=== PATIENT | male | born 1955 | race African-American/Black ===

== ENCOUNTER 2022-12-18 15:17 | Inpatient (IN) ==
[2022-12-18] MEDS ORDERED: ONDANSETRON 4 MG/2 ML VIAL IV STA (15:45)
[2022-12-18] MEDS ORDERED: SODIUM CHLORIDE 0.9% 1,000 ML IV STA (15:45)
[2022-12-18] MEDS ORDERED: PANTOPRAZOLE 40 MG VIAL IV STA (15:45)
[2022-12-18] MEDS ORDERED: SODIUM CHLORIDE 0.9% 1,000 ML IV PRN (15:45)
[2022-12-18 16:37] LABS: Basophils % 0.1 % (0.0-0.8); Eosinophils # 0.1 10*3/uL (0.0-0.87); Eosinophils % 0.9 % (0.00-10.9); Immature Granulocytes % 0.5 %; Immature Granulocytes Absolute 0.04 #; Lymphocytes # 0.9 10*3/uL (1.4-4.0); Lymphocytes % 10.4 % (21.2-54.2); Mean Corpuscular HGB Conc 26.3 GM/DL (32-36); Mean Corpuscular Volume 81.3 FL (87-102); Mean Platelet Volume 11.8 FL (9.6-12.0); Monocytes # 0.7 10*3/uL (0.11-0.8); Monocytes % 8.7 % (1.7-12.7); Neutrophils % 79.4 % (38.7-73.9); Platelet Count 280 T/CUMM (130-400); Red Blood Count 1.92 MC/CUMM (3.8-5.5); Red Cell Distribution Width 19.6 % (9.3-17.3); White Blood Count 8.15 T/CUMM (4-12)
[2022-12-18 16:43] LABS: Hemoglobin 4.1 GM/DL (14.0-18.0)
[2022-12-18 16:44] LABS: Hematocrit 15.6 VOL% (42.0-52.0)
[2022-12-18 16:56] LABS: Alanine Aminotransferase 25 U/L (16-61); Albumin 2.9 G/DL (3.4-5.0); Alkaline Phosphatase 73 U/L (45-117); Aspartate Amino Transferase 42 U/L (0-37); Bilirubin,Total < 0.39 MG/DL (0.20-1.00); Blood Urea Nitrogen 18 MG/DL (7-18); Calcium 8.7 MG/DL (8.5-10.1); Carbon Dioxide 27 MMOL/L (21-32); Chloride 106 MMOL/L (98-107); Glucose 98 MG/DL (74-106); Osmolality,Calculated 284.1 MOS/KG (273-304); Potassium 4.7 MMOL/L (3.5-5.1); Sodium 142 MMOL/L (136-145); Total Protein 6.6 G/DL (6.4-8.2)
[2022-12-18] MEDS ORDERED: ONDANSETRON 4 MG/2 ML VIAL IV PRN (17:11)
[2022-12-18] MEDS ORDERED: ZALEPLON 5 MG CAPSULE PO PRN (17:11)
[2022-12-18] MEDS ORDERED: ACETAMINOPHEN 325 MG TABLET PO PRN (17:11)
[2022-12-18 17:17] LABS: Microcytosis 2+
[2022-12-18 17:18] LABS: Hypochromia 2+; Schistocytes Few
[2022-12-18 17:19] LABS: Elliptocytes Few; Platelet Estimate Adequate; Polychromasia Few
[2022-12-18] MEDS ORDERED: hydrALAZINE 20 MG/1 ML VIAL IV PRN (17:23)
[2022-12-18] MEDS ORDERED: FUROSEMIDE 40 MG/4 ML VIAL IV ONE ×2 (18:00)
[2022-12-18] MEDS: SODIUM CHLORIDE 0.9% 1,000 ML IV SCH (18:20)
[2022-12-18 21:16] LABS: Partial Thromboplastin Time 24.2 SECS (23.7-32.9)
[2022-12-18] MEDS: PANTOPRAZOLE INJ 200 MG in SODIUM CHLORIDE 0.9% 250 ML IV SCH (22:04)
[2022-12-19] MEDS ORDERED: FUROSEMIDE 40 MG/4 ML VIAL IV ONE ×2 (01:30→03:00)
[2022-12-19] MEDS: SODIUM CHLORIDE 0.9% 1,000 ML IV SCH ×3 (04:00→22:32)
[2022-12-19 06:23] LABS: Albumin 2.9 G/DL (3.4-5.0); Bilirubin,Total 0.5 MG/DL (0.20-1.00); Calcium 8.7 MG/DL (8.5-10.1); Osmolality,Calculated 281.3 MOS/KG (273-304); Potassium 3.8 MMOL/L (3.5-5.1); Risk Ratio 1.68; Thyroid Stimulating Hormone 1.98 uIU/ml (0.358-3.74); Total Protein 6.6 G/DL (6.4-8.2)
[2022-12-19 06:27] LABS: Basophils # 0.1 10*3/uL (0.0-0.2); Basophils % 0.7 % (0.0-0.8); Eosinophils # 0.1 10*3/uL (0.0-0.87); Eosinophils % 1.7 % (0.00-10.9); Hematocrit 22.8 VOL% (42.0-52.0); Hemoglobin 6.8 GM/DL (14.0-18.0); Immature Granulocytes % 0.3 %; Immature Granulocytes Absolute 0.02 #; Lymphocytes # 0.6 10*3/uL (1.4-4.0); Lymphocytes % 8.6 % (21.2-54.2); Mean Corpuscular HGB Conc 29.8 GM/DL (32-36); Mean Corpuscular Volume 84.1 FL (87-102); Mean Platelet Volume 12.4 FL (9.6-12.0); Monocytes # 0.8 10*3/uL (0.11-0.8); Monocytes % 10.8 % (1.7-12.7); Neutrophils % 77.9 % (38.7-73.9); Platelet Count 287 T/CUMM (130-400); Red Blood Count 2.71 MC/CUMM (3.8-5.5); Red Cell Distribution Width 17.2 % (9.3-17.3); White Blood Count 7.22 T/CUMM (4-12)
[2022-12-19] MEDS: ATORVASTATIN 10 MG TABLET PO SCH (09:35)
[2022-12-19] MEDS: FOLIC ACID 1 MG TABLET PO SCH (09:35)
[2022-12-19] MEDS ORDERED: SODIUM CHLORIDE 0.9% 1,000 ML IV PRN (11:02)
[2022-12-19 11:29] LABS: Hemoglobin 6.9 GM/DL (14.0-18.0)
[2022-12-19] MEDS: PANTOPRAZOLE INJ 200 MG in SODIUM CHLORIDE 0.9% 250 ML IV SCH (20:49)
[2022-12-19 20:53] LABS: Hematocrit 24.1 VOL% (42.0-52.0); Hemoglobin 7.5 GM/DL (14.0-18.0)
[2022-12-20 00:51] LABS: Hematocrit 24.3 VOL% (42.0-52.0); Hemoglobin 7.5 GM/DL (14.0-18.0)
[2022-12-20 05:11] LABS: Basophils % 0.5 % (0.0-0.8); Eosinophils # 0.1 10*3/uL (0.0-0.87); Eosinophils % 1.9 % (0.00-10.9); Hematocrit 25.5 VOL% (42.0-52.0); Hemoglobin 7.8 GM/DL (14.0-18.0); Immature Granulocytes % 0.5 %; Immature Granulocytes Absolute 0.04 #; Lymphocytes # 0.7 10*3/uL (1.4-4.0); Lymphocytes % 9.9 % (21.2-54.2); Mean Corpuscular HGB Conc 30.6 GM/DL (32-36); Mean Corpuscular Volume 80.7 FL (87-102); Mean Platelet Volume 11.7 FL (9.6-12.0); Monocytes # 0.7 10*3/uL (0.11-0.8); Monocytes % 9.1 % (1.7-12.7); Neutrophils % 78.1 % (38.7-73.9); Platelet Count 266 T/CUMM (130-400); Red Blood Count 3.16 MC/CUMM (3.8-5.5)
[2022-12-20 05:34] LABS: Albumin 2.7 G/DL (3.4-5.0); Bilirubin,Total 0.7 MG/DL (0.20-1.00); Calcium 8.6 MG/DL (8.5-10.1); Osmolality,Calculated 279.3 MOS/KG (273-304); Potassium 3.5 MMOL/L (3.5-5.1); Total Protein 6.2 G/DL (6.4-8.2)
[2022-12-20 05:43] LABS: Eosinophils 1 % (0-10); Lymphocytes 8 % (20-55); Nucleated Red Blood Cells 1 /100 WBC (0-5); Total Cells Counted 100
[2022-12-20 05:44] LABS: Hypochromia 1+; Microcytosis 1+; Platelet Estimate Normal; Polychromasia Slight; Target Cells Slight
[2022-12-20 06:08] LABS: Hematocrit 26.1 VOL% (42.0-52.0)
[2022-12-20] MEDS: LACTATED RINGERS 1,000 ML IV SCH (08:32)
[2022-12-20] MEDS ORDERED: propofoL 200 MG/20 ML VIAL IV ONE (09:28)
[2022-12-20] MEDS ORDERED: LIDOCAINE 2% 5 ML VIAL ONE (09:28)
[2022-12-20] MEDS: ATORVASTATIN 10 MG TABLET PO SCH (11:05)
[2022-12-20] MEDS: FOLIC ACID 1 MG TABLET PO SCH (11:05)
[2022-12-20 12:00] LABS: Hematocrit 26.1 VOL% (42.0-52.0)
[2022-12-20] MEDS: SODIUM CHLORIDE 0.9% 1,000 ML IV SCH ×2 (15:29→20:45)
[2022-12-20 18:14] LABS: Hematocrit 27.7 VOL% (42.0-52.0); Hemoglobin 8.5 GM/DL (14.0-18.0)
[2022-12-20] MEDS: PANTOPRAZOLE INJ 200 MG in SODIUM CHLORIDE 0.9% 250 ML IV SCH (20:45)
[2022-12-21] MEDS: SODIUM CHLORIDE 0.9% 1,000 ML IV SCH ×3 (02:15→17:43)
[2022-12-21 04:47] LABS: Basophils % 0.5 % (0.0-0.8); Eosinophils # 0.2 10*3/uL (0.0-0.87); Eosinophils % 1.9 % (0.00-10.9); Hematocrit 25.3 VOL% (42.0-52.0); Hemoglobin 7.8 GM/DL (14.0-18.0); Immature Granulocytes % 0.4 %; Immature Granulocytes Absolute 0.03 #; Lymphocytes # 0.7 10*3/uL (1.4-4.0); Lymphocytes % 8.6 % (21.2-54.2); Mean Corpuscular HGB Conc 30.8 GM/DL (32-36); Mean Corpuscular Volume 81.6 FL (87-102); Monocytes % 11.5 % (1.7-12.7); Neutrophils % 77.1 % (38.7-73.9); Platelet Count 253 T/CUMM (130-400); Red Cell Distribution Width 17.2 % (9.3-17.3); White Blood Count 8.23 T/CUMM (4-12)
[2022-12-21 05:28] LABS: Albumin 2.7 G/DL (3.4-5.0); Bilirubin,Total 0.6 MG/DL (0.20-1.00); Calcium 8.3 MG/DL (8.5-10.1); Osmolality,Calculated 278.3 MOS/KG (273-304); Potassium 3.5 MMOL/L (3.5-5.1); Total Protein 6.2 G/DL (6.4-8.2)
[2022-12-21] MEDS: FOLIC ACID 1 MG TABLET PO SCH (10:13)
[2022-12-21] MEDS: ATORVASTATIN 10 MG TABLET PO SCH (10:13)
[2022-12-21] MEDS: LACTATED RINGERS 1,000 ML IV SCH (10:14)
[2022-12-21 12:31] LABS: Hematocrit 25.1 VOL% (42.0-52.0); Hemoglobin 7.8 GM/DL (14.0-18.0)
[2022-12-21] MEDS: PANTOPRAZOLE INJ 200 MG in SODIUM CHLORIDE 0.9% 250 ML IV SCH ×2 (19:25→23:35)
[2022-12-21 21:36] LABS: Hematocrit 25.3 VOL% (42.0-52.0); Hemoglobin 7.7 GM/DL (14.0-18.0)
[2022-12-22] MEDS: SODIUM CHLORIDE 0.9% 1,000 ML IV SCH ×3 (03:18→21:30)
[2022-12-22 05:47] LABS: Basophils % 0.4 % (0.0-0.8); Eosinophils # 0.2 10*3/uL (0.0-0.87); Eosinophils % 2.5 % (0.00-10.9); Hematocrit 26.7 VOL% (42.0-52.0); Hemoglobin 8.2 GM/DL (14.0-18.0); Immature Granulocytes % 0.4 %; Immature Granulocytes Absolute 0.03 #; Lymphocytes # 0.8 10*3/uL (1.4-4.0); Lymphocytes % 10.7 % (21.2-54.2); Mean Corpuscular HGB Conc 30.7 GM/DL (32-36); Mean Corpuscular Volume 81.9 FL (87-102); Mean Platelet Volume 12.8 FL (9.6-12.0); Monocytes # 0.7 10*3/uL (0.11-0.8); Monocytes % 9.6 % (1.7-12.7); Neutrophils % 76.4 % (38.7-73.9); Platelet Count 264 T/CUMM (130-400); Red Blood Count 3.26 MC/CUMM (3.8-5.5); Red Cell Distribution Width 16.9 % (9.3-17.3); White Blood Count 7.32 T/CUMM (4-12)
[2022-12-22 05:50] LABS: Hematocrit 26.4 VOL% (42.0-52.0); Hemoglobin 8.2 GM/DL (14.0-18.0)
[2022-12-22 06:04] LABS: Calcium 8.8 MG/DL (8.5-10.1); Osmolality,Calculated 281.8 MOS/KG (273-304); Potassium 3.6 MMOL/L (3.5-5.1)
[2022-12-22] MEDS: LACTATED RINGERS 1,000 ML IV SCH (10:30)
[2022-12-22] MEDS: FOLIC ACID 1 MG TABLET PO SCH (10:31)
[2022-12-22] MEDS: ATORVASTATIN 10 MG TABLET PO SCH (10:31)
[2022-12-22 14:55] LABS: Hematocrit 28.7 VOL% (42.0-52.0); Hemoglobin 8.5 GM/DL (14.0-18.0)
[2022-12-22] MEDS: PANTOPRAZOLE INJ 200 MG in SODIUM CHLORIDE 0.9% 250 ML IV SCH (19:30)
[2022-12-22 20:05] LABS: Hematocrit 24.3 VOL% (42.0-52.0); Hemoglobin 7.5 GM/DL (14.0-18.0)
[2022-12-23] MEDS: SODIUM CHLORIDE 0.9% 1,000 ML IV SCH ×4 (00:44→21:21)
[2022-12-23 05:07] LABS: Basophils # 0.1 10*3/uL (0.0-0.2); Basophils % 0.6 % (0.0-0.8); Eosinophils # 0.2 10*3/uL (0.0-0.87); Eosinophils % 2.6 % (0.00-10.9); Hematocrit 25.3 VOL% (42.0-52.0); Hemoglobin 7.6 GM/DL (14.0-18.0); Immature Granulocytes % 0.4 %; Immature Granulocytes Absolute 0.03 #; Lymphocytes # 0.7 10*3/uL (1.4-4.0); Lymphocytes % 8.6 % (21.2-54.2); Mean Corpuscular Volume 81.4 FL (87-102); Mean Platelet Volume 12.4 FL (9.6-12.0); Monocytes # 0.8 10*3/uL (0.11-0.8); Monocytes % 9.8 % (1.7-12.7); Platelet Count 252 T/CUMM (130-400); Red Blood Count 3.11 MC/CUMM (3.8-5.5); Red Cell Distribution Width 17.3 % (9.3-17.3); White Blood Count 8.37 T/CUMM (4-12)
[2022-12-23 05:25] LABS: Calcium 8.5 MG/DL (8.5-10.1); Potassium 3.5 MMOL/L (3.5-5.1)
[2022-12-23 05:27] LABS: Eosinophils 4 % (0-10); Hypochromia 1+; Lymphocytes 8 % (20-55); Microcytosis 1+; Platelet Estimate Adequate; Total Cells Counted 100
[2022-12-23] MEDS ORDERED: LIDOCAINE 2% 5 ML VIAL ONE (08:59)
[2022-12-23] MEDS ORDERED: PHENYLEPHRINE 1 MG/10 ML SYRINGE IV ONE (08:59)
[2022-12-23] MEDS ORDERED: ONDANSETRON 4 MG/2 ML VIAL ONE (08:59)
[2022-12-23] MEDS ORDERED: propofoL 200 MG/20 ML VIAL IV ONE (08:59)
[2022-12-23] MEDS ORDERED: ROCURONIUM 50 MG/5 ML VIAL IV ONE (08:59)
[2022-12-23] MEDS ORDERED: SEVOFLURANE 1 UNIT/15 MINUTE INH ONE (08:59)
[2022-12-23] MEDS ORDERED: ETOMIDATE 40 MG/20 ML VIAL IV ONE (08:59)
[2022-12-23] MEDS ORDERED: MIDAZOLAM 2 MG/2 ML VIAL ONE (08:59)
[2022-12-23] MEDS ORDERED: fentaNYL 100 MCG/2 ML VIAL ONE ×3 (08:59→11:10)
[2022-12-23] MEDS ORDERED: ACETAMINOPHEN INJ 1,000 MG/100 ML VIAL IV ONE ×2 (09:00→10:26)
[2022-12-23] MEDS ORDERED: LIDOCAINE 1%/EPI INJ 20 ML VIAL ONE (09:08)
[2022-12-23] MEDS ORDERED: TISSUE ADHESIVE 1 EACH APPLICATOR TOP ONE (09:08)
[2022-12-23] MEDS ORDERED: BUPIVACAINE MPF 0.25% 10 ML VIAL ONE (09:08)
[2022-12-23 09:59] LABS: % Iron Saturation 4.2 % (18-50)
[2022-12-23 10:10] LABS: Folate > 24.00 NG/ML (5.38-24.0); Vitamin B12 602 PG/ML (211-911)
[2022-12-23] MEDS ORDERED: SUGAMMADEX 200 MG/2 ML VIAL IV ONE (10:57)
[2022-12-23] MEDS: FOLIC ACID 1 MG TABLET PO SCH (11:27)
[2022-12-23] MEDS: ATORVASTATIN 10 MG TABLET PO SCH (11:27)
[2022-12-23] MEDS ORDERED: KETOROLAC 15 MG/1 ML VIAL IV PRN (13:07)
[2022-12-23] MEDS ORDERED: HYDROmorphone 1 MG/1 ML SYRINGE IV PRN ×2 (13:07)
[2022-12-23] MEDS: PANTOPRAZOLE 40 MG VIAL IV SCH (20:23)
[2022-12-24 04:40] LABS: Basophils % 0.2 % (0.0-0.8); Eosinophils # 0.1 10*3/uL (0.0-0.87); Eosinophils % 0.8 % (0.00-10.9); Hematocrit 26.9 VOL% (42.0-52.0); Hemoglobin 8.1 GM/DL (14.0-18.0); Immature Granulocytes % 0.3 %; Immature Granulocytes Absolute 0.03 #; Lymphocytes # 0.5 10*3/uL (1.4-4.0); Lymphocytes % 5.7 % (21.2-54.2); Mean Corpuscular HGB Conc 30.1 GM/DL (32-36); Mean Corpuscular Volume 82.5 FL (87-102); Mean Platelet Volume 12.1 FL (9.6-12.0); Monocytes # 0.7 10*3/uL (0.11-0.8); Monocytes % 7.9 % (1.7-12.7); Neutrophils % 85.1 % (38.7-73.9); Platelet Count 241 T/CUMM (130-400); Red Blood Count 3.26 MC/CUMM (3.8-5.5); Red Cell Distribution Width 17.2 % (9.3-17.3); White Blood Count 8.59 T/CUMM (4-12)
[2022-12-24 05:02] LABS: Calcium 8.6 MG/DL (8.5-10.1); Osmolality,Calculated 278.3 MOS/KG (273-304); Potassium 3.4 MMOL/L (3.5-5.1)
[2022-12-24] MEDS: SODIUM CHLORIDE 0.9% 1,000 ML IV SCH ×2 (06:43→18:42)
[2022-12-24] MEDS: PANTOPRAZOLE 40 MG VIAL IV SCH ×2 (10:49→21:30)
[2022-12-24] MEDS: FERRIC GLUCONATE COMPLEX 125 MG in SODIUM CHLORIDE 0.9% 100 ML IV SCH (10:54)
[2022-12-24] MEDS: LOSARTAN 25 MG TABLET PO SCH (11:03)
[2022-12-24] MEDS: FOLIC ACID 1 MG TABLET PO SCH (11:04)
[2022-12-24] MEDS: ATORVASTATIN 10 MG TABLET PO SCH (11:05)
[2022-12-24] MEDS: amLODIPine 5 MG TABLET PO SCH (11:05)
[2022-12-24] MEDS: CHOLECALCIFEROL 5,000 UNIT TABLET PO SCH (11:06)
[2022-12-25 05:13] LABS: Basophils % 0.4 % (0.0-0.8); Eosinophils # 0.1 10*3/uL (0.0-0.87); Eosinophils % 1.1 % (0.00-10.9); Hematocrit 23.8 VOL% (42.0-52.0); Hemoglobin 7.1 GM/DL (14.0-18.0); Immature Granulocytes % 0.6 %; Immature Granulocytes Absolute 0.06 #; Lymphocytes # 0.6 10*3/uL (1.4-4.0); Lymphocytes % 5.6 % (21.2-54.2); Mean Corpuscular HGB Conc 29.8 GM/DL (32-36); Mean Corpuscular Volume 80.4 FL (87-102); Mean Platelet Volume 12.2 FL (9.6-12.0); Monocytes # 0.9 10*3/uL (0.11-0.8); Monocytes % 8.3 % (1.7-12.7); Platelet Count 206 T/CUMM (130-400); Red Blood Count 2.96 MC/CUMM (3.8-5.5); Red Cell Distribution Width 17.3 % (9.3-17.3); White Blood Count 10.31 T/CUMM (4-12)
[2022-12-25] MEDS: SODIUM CHLORIDE 0.9% 1,000 ML IV SCH (05:38)
[2022-12-25 05:51] LABS: Calcium 8.2 MG/DL (8.5-10.1); Osmolality,Calculated 282.1 MOS/KG (273-304); Potassium 3.2 MMOL/L (3.5-5.1)
[2022-12-25] MEDS ORDERED: ceFAZolin 1,000 MG VIAL IRRIG ONE (06:00)
[2022-12-25] MEDS ORDERED: POTASSIUM CHLORIDE 20 MEQ TABLET PO ONE (09:34)
[2022-12-25] MEDS ORDERED: SODIUM CHLORIDE 0.9% 1,000 ML IV PRN (10:38)
[2022-12-25] MEDS: CHOLECALCIFEROL 5,000 UNIT TABLET PO SCH (11:07)
[2022-12-25] MEDS: LOSARTAN 25 MG TABLET PO SCH (11:07)
[2022-12-25] MEDS: PANTOPRAZOLE 40 MG VIAL IV SCH ×2 (11:07→20:28)
[2022-12-25] MEDS: ATORVASTATIN 10 MG TABLET PO SCH (11:08)
[2022-12-25] MEDS: FOLIC ACID 1 MG TABLET PO SCH (11:08)
[2022-12-25] MEDS: amLODIPine 5 MG TABLET PO SCH (11:08)
[2022-12-25] MEDS: FERRIC GLUCONATE COMPLEX 125 MG in SODIUM CHLORIDE 0.9% 100 ML IV SCH (11:25)
[2022-12-26 02:00] LABS: Hemoglobin 8.8 GM/DL (14.0-18.0)
[2022-12-26 04:58] LABS: Basophils % 0.4 % (0.0-0.8); Eosinophils # 0.3 10*3/uL (0.0-0.87); Eosinophils % 3.1 % (0.00-10.9); Hematocrit 29.2 VOL% (42.0-52.0); Hemoglobin 9.1 GM/DL (14.0-18.0); Immature Granulocytes % 0.4 %; Immature Granulocytes Absolute 0.04 #; Lymphocytes # 0.7 10*3/uL (1.4-4.0); Lymphocytes % 6.6 % (21.2-54.2); Mean Corpuscular HGB Conc 31.2 GM/DL (32-36); Mean Corpuscular Volume 80.4 FL (87-102); Monocytes # 0.8 10*3/uL (0.11-0.8); Monocytes % 8.2 % (1.7-12.7); Neutrophils % 81.3 % (38.7-73.9); Platelet Count 196 T/CUMM (130-400); Red Blood Count 3.63 MC/CUMM (3.8-5.5); Red Cell Distribution Width 16.7 % (9.3-17.3)
[2022-12-26 05:14] LABS: Calcium 8.3 MG/DL (8.5-10.1); Osmolality,Calculated 281.1 MOS/KG (273-304); Potassium 3.2 MMOL/L (3.5-5.1)
[2022-12-26] MEDS ORDERED: ceFAZolin 1,000 MG VIAL ONE (06:52)
[2022-12-26] MEDS ORDERED: LIDOCAINE 1%/EPI INJ 20 ML VIAL ONE (06:52)
[2022-12-26] MEDS ORDERED: HEPARIN/NACL 0.9% 2 UNITS/ML 1,000 UNIT/500 ML BAG IV ONE (06:52)
[2022-12-26] MEDS ORDERED: POTASSIUM CHLORIDE 20 MEQ TABLET PO ONE (08:09)
[2022-12-26] MEDS ORDERED: MIDAZOLAM 2 MG/2 ML VIAL ONE ×2 (08:36→08:59)
[2022-12-26] MEDS ORDERED: fentaNYL 100 MCG/2 ML VIAL ONE (08:36)
[2022-12-26] MEDS: LOSARTAN 25 MG TABLET PO SCH (08:51)
[2022-12-26] MEDS: FERRIC GLUCONATE COMPLEX 125 MG in SODIUM CHLORIDE 0.9% 100 ML IV SCH (08:51)
[2022-12-26] MEDS: CHOLECALCIFEROL 5,000 UNIT TABLET PO SCH (08:52)
[2022-12-26] MEDS: ATORVASTATIN 10 MG TABLET PO SCH (08:52)
[2022-12-26] MEDS: PANTOPRAZOLE 40 MG VIAL IV SCH ×2 (08:52→21:28)
[2022-12-26] MEDS: amLODIPine 5 MG TABLET PO SCH (08:52)
[2022-12-26] MEDS: FOLIC ACID 1 MG TABLET PO SCH (08:53)
[2022-12-26] MEDS ORDERED: ceFAZolin 1,000 MG VIAL IRRIG ONE (10:44)
[2022-12-27 05:26] LABS: Basophils % 0.3 % (0.0-0.8); Eosinophils # 0.2 10*3/uL (0.0-0.87); Eosinophils % 2.3 % (0.00-10.9); Hematocrit 27.3 VOL% (42.0-52.0); Hemoglobin 8.8 GM/DL (14.0-18.0); Immature Granulocytes % 0.3 %; Immature Granulocytes Absolute 0.03 #; Lymphocytes # 0.6 10*3/uL (1.4-4.0); Lymphocytes % 6.5 % (21.2-54.2); Mean Corpuscular HGB Conc 32.2 GM/DL (32-36); Mean Corpuscular Volume 80.8 FL (87-102); Mean Platelet Volume 11.9 FL (9.6-12.0); Monocytes # 0.7 10*3/uL (0.11-0.8); Monocytes % 7.9 % (1.7-12.7); Neutrophils % 82.7 % (38.7-73.9); Platelet Count 191 T/CUMM (130-400); Red Blood Count 3.38 MC/CUMM (3.8-5.5); Red Cell Distribution Width 16.9 % (9.3-17.3); White Blood Count 8.75 T/CUMM (4-12)
[2022-12-27 05:51] LABS: Calcium 8.4 MG/DL (8.5-10.1); Osmolality,Calculated 279.3 MOS/KG (273-304); Potassium 3.4 MMOL/L (3.5-5.1)
[2022-12-27] MEDS ORDERED: POTASSIUM CHLORIDE INJ 10 MEQ in SODIUM CHLORIDE 0.9% 100 ML IV ONE (08:23)
[2022-12-27] MEDS ORDERED: POTASSIUM CHLORIDE RIDER 10 MEQ/100 ML PREMIX IV ONE (09:00)
[2022-12-27] MEDS ORDERED: PANTOPRAZOLE 40 MG VIAL IV SCH (09:00)
[2022-12-27] MEDS: FERRIC GLUCONATE COMPLEX 125 MG in SODIUM CHLORIDE 0.9% 100 ML IV SCH (09:10)
[2022-12-27 09:16] LABS: Hematocrit 23.8 VOL% (42.0-52.0); Hemoglobin 7.3 GM/DL (14.0-18.0)
[2022-12-27] MEDS ORDERED: SODIUM CHLORIDE 0.9% 1,000 ML IV PRN ×2 (09:28→09:30)
[2022-12-27] MEDS ORDERED: SUCCINYLCHOLINE 200 MG/10 ML VIAL ONE (11:42)
[2022-12-27] MEDS ORDERED: ONDANSETRON 4 MG/2 ML VIAL ONE (11:42)
[2022-12-27] MEDS ORDERED: propofoL 200 MG/20 ML VIAL IV ONE (11:42)
[2022-12-27] MEDS ORDERED: LIDOCAINE 2% 5 ML VIAL ONE (11:42)
[2022-12-27] MEDS ORDERED: ETOMIDATE 20 MG/10 ML VIAL IV ONE (11:42)
[2022-12-27] MEDS ORDERED: SEVOFLURANE 1 UNIT/15 MINUTE INH ONE (11:58)
[2022-12-27] MEDS: LACTATED RINGERS 1,000 ML IV SCH (12:44)
[2022-12-27] MEDS: CHOLECALCIFEROL 5,000 UNIT TABLET PO SCH (13:15)
[2022-12-27] MEDS: amLODIPine 5 MG TABLET PO SCH (13:16)
[2022-12-27] MEDS: LOSARTAN 25 MG TABLET PO SCH (13:16)
[2022-12-27] MEDS: ATORVASTATIN 10 MG TABLET PO SCH (13:16)
[2022-12-27] MEDS: FOLIC ACID 1 MG TABLET PO SCH (13:16)
[2022-12-27] MEDS: PANTOPRAZOLE 40 MG VIAL IV SCH ×2 (14:10→21:07)
[2022-12-28] MEDS ORDERED: ALUMINUM/MAGNES/SIMETH MAX STR 30 ML UDCUP PO PRN (03:12)
[2022-12-28 05:20] LABS: Basophils % 0.2 % (0.0-0.8); Eosinophils # 0.1 10*3/uL (0.0-0.87); Eosinophils % 0.7 % (0.00-10.9); Hematocrit 27.6 VOL% (42.0-52.0); Hemoglobin 8.7 GM/DL (14.0-18.0); Immature Granulocytes % 0.6 %; Immature Granulocytes Absolute 0.06 #; Lymphocytes # 0.5 10*3/uL (1.4-4.0); Lymphocytes % 4.7 % (21.2-54.2); Mean Corpuscular HGB Conc 31.5 GM/DL (32-36); Mean Corpuscular Volume 84.7 FL (87-102); Mean Platelet Volume 12.4 FL (9.6-12.0); Monocytes % 9.6 % (1.7-12.7); Neutrophils % 84.2 % (38.7-73.9); Platelet Count 169 T/CUMM (130-400); Red Blood Count 3.26 MC/CUMM (3.8-5.5); Red Cell Distribution Width 16.9 % (9.3-17.3); White Blood Count 10.45 T/CUMM (4-12)
[2022-12-28 05:37] LABS: Calcium 8.1 MG/DL (8.5-10.1); Osmolality,Calculated 280.5 MOS/KG (273-304); Potassium 3.6 MMOL/L (3.5-5.1)
[2022-12-28] MEDS: PANTOPRAZOLE 40 MG VIAL IV SCH ×2 (10:45→21:50)
[2022-12-28] MEDS: FOLIC ACID 1 MG TABLET PO SCH (10:45)
[2022-12-28] MEDS: CHOLECALCIFEROL 5,000 UNIT TABLET PO SCH (11:18)
[2022-12-28] MEDS: FERRIC GLUCONATE COMPLEX 125 MG in SODIUM CHLORIDE 0.9% 100 ML IV SCH (11:18)
[2022-12-28] MEDS: ATORVASTATIN 10 MG TABLET PO SCH (11:18)
[2022-12-28] MEDS: LACTATED RINGERS 1,000 ML IV SCH (12:03)
[2022-12-29] MEDS: PANTOPRAZOLE 40 MG VIAL IV SCH ×2 (11:07→21:48)
[2022-12-29] MEDS: FERRIC GLUCONATE COMPLEX 125 MG in SODIUM CHLORIDE 0.9% 100 ML IV SCH (11:07)
[2022-12-29] MEDS: FOLIC ACID 1 MG TABLET PO SCH (11:07)
[2022-12-29] MEDS: ATORVASTATIN 10 MG TABLET PO SCH (11:07)
[2022-12-29] MEDS: CHOLECALCIFEROL 5,000 UNIT TABLET PO SCH (11:08)
[2022-12-30 06:17] LABS: Basophils % 0.1 % (0.0-0.8); Eosinophils % 0.1 % (0.00-10.9); Hematocrit 27.3 VOL% (42.0-52.0); Hemoglobin 8.7 GM/DL (14.0-18.0); Lymphocytes # 0.7 10*3/uL (1.4-4.0); Lymphocytes % 3.2 % (21.2-54.2); Mean Corpuscular HGB Conc 31.9 GM/DL (32-36); Mean Corpuscular Volume 83.5 FL (87-102); Monocytes # 1.8 10*3/uL (0.11-0.8); Monocytes % 8.9 % (1.7-12.7); Neutrophils % 86.7 % (38.7-73.9); Platelet Count 205 T/CUMM (130-400); Red Blood Count 3.27 MC/CUMM (3.8-5.5); Red Cell Distribution Width 18.2 % (9.3-17.3); White Blood Count 20.01 T/CUMM (4-12)
[2022-12-30 06:33] LABS: Calcium 8.4 MG/DL (8.5-10.1); Osmolality,Calculated 260.7 MOS/KG (273-304); Potassium 3.3 MMOL/L (3.5-5.1)
[2022-12-30 06:43] LABS: Hypochromia Slight; Lymphocytes 4 % (20-55); Microcytosis Slight; Platelet Estimate Adequate; Total Cells Counted 100
[2022-12-30] MEDS: PANTOPRAZOLE 40 MG VIAL IV SCH ×2 (10:37→20:23)
[2022-12-30] MEDS: FERRIC GLUCONATE COMPLEX 125 MG in SODIUM CHLORIDE 0.9% 100 ML IV SCH (10:37)
[2022-12-30] MEDS: FOLIC ACID 1 MG TABLET PO SCH (10:49)
[2022-12-30] MEDS: CHOLECALCIFEROL 5,000 UNIT TABLET PO SCH (10:49)
[2022-12-30] MEDS: ATORVASTATIN 10 MG TABLET PO SCH (10:49)
[2022-12-30] MEDS ORDERED: POTASSIUM CHLORIDE 20 MEQ TABLET PO ONE (11:30)
[2022-12-31 05:42] LABS: Basophils % 0.2 % (0.0-0.8); Eosinophils # 0.1 10*3/uL (0.0-0.87); Eosinophils % 0.4 % (0.00-10.9); Hematocrit 23.3 VOL% (42.0-52.0); Hemoglobin 7.6 GM/DL (14.0-18.0); Immature Granulocytes % 0.8 %; Immature Granulocytes Absolute 0.12 #; Lymphocytes # 0.6 10*3/uL (1.4-4.0); Lymphocytes % 3.9 % (21.2-54.2); Mean Corpuscular HGB Conc 32.6 GM/DL (32-36); Monocytes # 1.1 10*3/uL (0.11-0.8); Neutrophils % 86.7 % (38.7-73.9); Platelet Count 243 T/CUMM (130-400); Red Blood Count 2.84 MC/CUMM (3.8-5.5); White Blood Count 14.33 T/CUMM (4-12)
[2022-12-31 06:07] LABS: Calcium 8.5 MG/DL (8.5-10.1); Osmolality,Calculated 261.7 MOS/KG (273-304); Potassium 3.3 MMOL/L (3.5-5.1)
[2022-12-31 06:09] LABS: Acanthocytes Few; Anisocytosis 1+; Eosinophils 1 % (0-10); Hypochromia 1+; Lymphocytes 2 % (20-55); Microcytosis 1+; Total Cells Counted 100
[2022-12-31 06:10] LABS: Platelet Estimate Normal; Target Cells Slight
[2022-12-31] MEDS: FOLIC ACID 1 MG TABLET PO SCH (08:41)
[2022-12-31] MEDS: CHOLECALCIFEROL 5,000 UNIT TABLET PO SCH (08:41)
[2022-12-31] MEDS: ATORVASTATIN 10 MG TABLET PO SCH (08:41)
[2022-12-31] MEDS ORDERED: POTASSIUM CHLORIDE 20 MEQ TABLET PO ONE (09:45)
[2022-12-31] MEDS: PANTOPRAZOLE 40 MG VIAL IV SCH ×2 (11:42→23:03)
[2023-01-01 04:35] LABS: Basophils % 0.3 % (0.0-0.8); Eosinophils # 0.1 10*3/uL (0.0-0.87); Hematocrit 24.3 VOL% (42.0-52.0); Hemoglobin 7.8 GM/DL (14.0-18.0); Immature Granulocytes Absolute 0.11 #; Lymphocytes # 0.6 10*3/uL (1.4-4.0); Lymphocytes % 5.5 % (21.2-54.2); Mean Corpuscular HGB Conc 32.1 GM/DL (32-36); Mean Corpuscular Volume 82.4 FL (87-102); Mean Platelet Volume 11.1 FL (9.6-12.0); Neutrophils % 83.2 % (38.7-73.9); Platelet Count 319 T/CUMM (130-400); Red Blood Count 2.95 MC/CUMM (3.8-5.5); Red Cell Distribution Width 18.2 % (9.3-17.3)
[2023-01-01 05:01] LABS: Calcium 8.3 MG/DL (8.5-10.1); Osmolality,Calculated 269.1 MOS/KG (273-304); Potassium 3.5 MMOL/L (3.5-5.1)
[2023-01-01] MEDS ORDERED: POTASSIUM CHLORIDE 20 MEQ TABLET PO ONE (08:31)
[2023-01-01] MEDS: PANTOPRAZOLE 40 MG VIAL IV SCH ×2 (09:57→21:36)
[2023-01-01] MEDS: FOLIC ACID 1 MG TABLET PO SCH (09:57)
[2023-01-01] MEDS: ATORVASTATIN 10 MG TABLET PO SCH (09:58)
[2023-01-01] MEDS: FERROUS SULFATE 325 MG TABLET PO SCH ×2 (09:58→17:59)
[2023-01-01] MEDS: CHOLECALCIFEROL 5,000 UNIT TABLET PO SCH (09:58)
[2023-01-02 04:20] LABS: Basophils # 0.1 10*3/uL (0.0-0.2); Basophils % 0.5 % (0.0-0.8); Eosinophils # 0.1 10*3/uL (0.0-0.87); Eosinophils % 1.1 % (0.00-10.9); Hemoglobin 7.8 GM/DL (14.0-18.0); Immature Granulocytes % 1.1 %; Immature Granulocytes Absolute 0.12 #; Lymphocytes # 0.7 10*3/uL (1.4-4.0); Lymphocytes % 6.4 % (21.2-54.2); Mean Corpuscular HGB Conc 31.2 GM/DL (32-36); Mean Corpuscular Volume 83.6 FL (87-102); Monocytes # 1.1 10*3/uL (0.11-0.8); Monocytes % 10.2 % (1.7-12.7); Neutrophils % 80.7 % (38.7-73.9); Platelet Count 336 T/CUMM (130-400); Red Blood Count 2.99 MC/CUMM (3.8-5.5); Red Cell Distribution Width 18.9 % (9.3-17.3); White Blood Count 11.01 T/CUMM (4-12)
[2023-01-02 04:45] LABS: Calcium 8.1 MG/DL (8.5-10.1); Osmolality,Calculated 271.8 MOS/KG (273-304); Potassium 3.9 MMOL/L (3.5-5.1)
[2023-01-02] MEDS: CHOLECALCIFEROL 5,000 UNIT TABLET PO SCH (09:16)
[2023-01-02] MEDS: ATORVASTATIN 10 MG TABLET PO SCH (09:16)
[2023-01-02] MEDS: PANTOPRAZOLE 40 MG VIAL IV SCH (09:17)
[2023-01-02] MEDS: FOLIC ACID 1 MG TABLET PO SCH (09:17)
[2023-01-02] MEDS: FERROUS SULFATE 325 MG TABLET PO SCH (09:17)
[2023-01-02 13:51] VITALS: BP 114/62
== END 2023-01-02 17:56 | DRG 327 ==
LOC: EDBD → EDUNIT# → N.ED 15:17 → N.EDINP 17:11 → MERGE 17:11 → SUATTDRO 17:11 → N.TELES 19:09
PROVIDERS: ADMIT Internal Medicine; ATTEND Internal Medicine